=== PATIENT | female | born 2000 ===

== ENCOUNTER 2022-12-05 07:10 | Day surgery (SDC) | payer MEDICAID ==
[2022-12-05] MEDS ORDERED: fentaNYL 100 MCG/2 ML SDV ONE (07:27)
[2022-12-05] MEDS ORDERED: Midazolam 1 MG/ML 2 ML SDV ONE (07:27)
[2022-12-05] MEDS: Dextrose 5%-0.45% NaCl 1,000 ML IV SCH (07:36)
[2022-12-05] MEDS: fentaNYL 100 MCG/2 ML SDV IV ONE ×2 (08:01→08:02)
[2022-12-05] MEDS: Midazolam 1 MG/ML 2 ML SDV IV ONE ×2 (08:02→08:03)
== END 2022-12-05 09:27 | disposition home or self-care (01) ==
LOC: DL.ENDO 07:10
PROVIDERS: ATTEND Internal Medicine Gastroenterology
DX: K29.80 Duodenitis without bleeding (principal); K29.50 Unspecified chronic gastritis without bleeding; F41.1 Generalized anxiety disorder; F32.A Depression, unspecified; D68.51 Activated protein C resistance; F12.90 Cannabis use, unspecified, uncomplicated; E66.09 Other obesity due to excess calories; Z88.8 Allergy status to other drugs, medicaments and biological substances; Z90.49 Acquired absence of other specified parts of digestive tract; Z86.39 Personal history of other endocrine, nutritional and metabolic disease; Z68.28 Body mass index [BMI] 28.0-28.9, adult
CPT/HCPCS: 43239; 81025; 87077; J2250; J3010; J7042

== ENCOUNTER → 2022-12-19 | Day surgery (SDC) | payer MEDICAID ==
[~2022-12-19] MED LIST: Dextrose 5%-0.45% NaCl 1,000 ML IV SCH; Midazolam 1 MG/ML 2 ML SDV IV ONE; Midazolam 1 MG/ML 2 ML SDV ONE; fentaNYL 100 MCG/2 ML SDV IV ONE; fentaNYL 100 MCG/2 ML SDV ONE
== END | disposition home or self-care (01) ==
LOC: DL.ENDO 06:16
PROVIDERS: ATTEND Internal Medicine Gastroenterology
DX: K52.9 Noninfective gastroenteritis and colitis, unspecified (principal); K63.89 Other specified diseases of intestine; K63.5 Polyp of colon; Q43.8 Other specified congenital malformations of intestine; F32.A Depression, unspecified; F41.1 Generalized anxiety disorder; F12.90 Cannabis use, unspecified, uncomplicated; D68.51 Activated protein C resistance; E66.09 Other obesity due to excess calories; Z88.8 Allergy status to other drugs, medicaments and biological substances; Z80.0 Family history of malignant neoplasm of digestive organs; Z90.49 Acquired absence of other specified parts of digestive tract; Z98.890 Other specified postprocedural states
CPT/HCPCS: 81025; J2250; J3010; J7042